=== PATIENT | female | born 1995 | race American Indian/Alaskan Native ===

== ENCOUNTER 2016-12-09 20:05 | Emergency (ER) | payer OTHER ==
[2016-12-09 21:11] VITALS: BP 130/82
[2016-12-09 22:19] LABS: Basophils % (Auto) 0.5 % (0.0-1.8); Eosinophils % (Auto) 1.1 % (0.0-4.3); Hematocrit 36.8 % (30.3-42.9); Hemoglobin 12.4 gm/dl (10.1-14.3); Mean Corpuscular HGB Conc 34 % (30-34); Mean Corpuscular Hemoglobin 32 pg (28-32); Mean Corpuscular Volume 95 fl (79-97); Platelet Count 270 K/mm3 (140-440); Red Blood Count 3.86 M/mm3 (3.65-5.03); Red Cell Distribution Width 12.5 % (13.2-15.2); White Blood Count 6.6 K/mm3 (4.5-11.0)
[2016-12-09 22:36] LABS: Alanine Aminotransferase 14 units/L (7-56); Albumin 4.3 g/dL (3.9-5); Albumin/Globulin Ratio 1.3 %; Alkaline Phosphatase 50 units/L (35-129); Anion Gap 17 mmol/L; BUN/Creatinine Ratio 16.66; Bilirubin,Total 0.3 mg/dL (0.1-1.2); Blood Urea Nitrogen 10 mg/dL (7-17); Calcium 9.1 mg/dL (8.4-10.2); Carbon Dioxide 24 mmol/L (22-30); Chloride 97.2 mmol/L (98-107); Glucose 97 mg/dL (65-100); Lipase 29 units/L (13-60); Potassium 3.7 mmol/L (3.6-5.0); Sodium 134 mmol/L (137-145); Total Protein 7.5 g/dL (6.3-8.2)
[2016-12-10 01:43] LABS: Bacteria,Urine 1+ /HPF (Negative); Bilirubin,Urine NEG (Negative); Blood,Urine NEG (Negative); Ketones,Urine NEG (Negative); Leukocyte Esterase,Urine SM (Negative); Mucus,Urine FEW /HPF; Nitrite,Urine POS (Negative); Protein,Urine <15 mg/dL mg/dL (Negative); Urobilinogen,Urine < 2.0 mg/dL (<2.0)
--- NOTE | 2016-12-10 19:12 | ED Elopement Review ---
ED Pt Elopement review - Results review Lab results: Laboratory Tests 12/09/16 12/09/16 12/10/16 22:00 22:00 00:47 WBC 6.6 RBC 3.86 Hgb 12.4 Hct 36.8 MCV 95 MCH 32 MCHC 34 RDW 12.5 L Plt Count 270 Lymph % (Auto) 49.2 H [place] % (Auto) 6.4 Eos % (Auto) 1.1 Baso % (Auto) 0.5 Lymph # 3.3 [place] # 0.4 Eos # 0.1 Baso # 0.0 Seg Neutrophils % 42.8 Seg Neutrophils # 2.8 Sodium 134 L Potassium 3.7 Chloride 97.2 L Carbon Dioxide 24 Anion Gap 17 BUN 10 Creatinine 0.6 L Estimated GFR > 60 BUN/Creatinine Ratio 16.66 Glucose 97 Calcium 9.1 Total Bilirubin 0.3 AST 20 ALT 14 Alkaline Phosphatase 50 Total Protein 7.5 Albumin 4.3 Albumin/Globulin Ratio 1.3 Lipase 29 Urine Color Yellow Urine Turbidity Cloudy Urine pH 7.0 Ur Specific [place] 1.014 Urine Protein <15 mg/dl Urine Glucose (UA) Neg Urine Ketones Neg Urine Blood Neg Urine Nitrite Pos Ur Reducing Substances Not Reportable Urine Bilirubin Neg Urine Ictotest Not Reportable Urine Urobilinogen < 2.0 Ur Leukocyte Esterase Sm Urine WBC (Auto) 11.0 H Urine RBC (Auto) 1.0 U Epithel Cells (Auto) 30.0 H Urine Bacteria (Auto) 1+ Amorphous Crystals Few Urine Mucus Few Urine HCG, Qual Positive A - Call Back decision Pt Call Back Decision: Call pt to return to ED ANURAG (patient is and has abdominal pain, vomiting and a urinary tract infection. She needs to return to the emergency department for an ultrasound if she is continuing to have pain otherwise follow up with her primary care doctor or her QA AUDITOR)
== END 2016-12-09 22:01 | disposition left against medical advice (07) ==
LOC: ED 20:05
DX: R11.2 Nausea with vomiting, unspecified (principal); R10.9 Unspecified abdominal pain; Z53.21 Procedure and treatment not carried out due to patient leaving prior to being seen by health care provider
CPT/HCPCS: 36415; 80053; 81001; 81025; 83690; 85025

== ENCOUNTER 2016-12-11 21:50 | Emergency (ER) | payer OTHER ==
--- NOTE | 2016-12-11 23:36 | Ultrasound Report ---
FINAL REPORT PROCEDURE: US OB \T\lt; = 14 WEEKS FETUS TECHNIQUE: Real-time transabdominal and transvaginal sonography of the uterus, placenta, amniotic fluid, adnexa, and fetus was performed with image documentation. Measurements were obtained to determine age/size. M-mode Doppler was used to document heartbeat. CPT 98723 and 38323 HISTORY: abd pain COMPARISON: None FINDINGS: ADDITIONAL GESTATION: None. Intrauterine is seen with a pole. [place]-rump length is 1.3 cm corresponding to 7 weeks 4 days gestational age. However, no heart tones are identified. Findings are worrisome for demise. Correlation with serial quantitative beta HCG levels is recommended. Right ovary measures 2.7 x 2.6 x 2.0 cm. Left ovary measures 2.2 x 1.5 x 2.4 cm. No adnexal masses are seen. Normal Doppler flow is seen in the ovaries. No free pelvic fluid is seen. IMPRESSION: Findings are worrisome for demise at 7 weeks 4 days gestational age. Correlation with serial quantitative beta HCG levels is recommended.
--- NOTE | 2016-12-11 23:37 | Ultrasound Report ---
FINAL REPORT PROCEDURE: US OB TRANSVAGINAL TECHNIQUE: Real-time transabdominal and transvaginal sonography of the uterus, placenta, amniotic fluid, adnexa, and fetus was performed with image documentation. Measurements were obtained to determine age/size. M-mode Doppler was used to document heartbeat. CPT 74135 and [id number] HISTORY: abd pain COMPARISON: No prior studies are available for comparison. FINDINGS: ADDITIONAL GESTATION: None. Intrauterine is seen with a pole. Ger[place]-rump length is 1.3 cm corresponding to 7 weeks 4 days gestational age. However, no heart tones are identified. Findings are worrisome for demise. Correlation with serial quantitative beta HCG levels is recommended. Right ovary measures 2.7 x 2.6 x 2.0 cm. Left ovary measures 2.2 x 1.5 x 2.4 cm. No adnexal masses are seen. Normal Doppler flow is seen in the ovaries. No free pelvic fluid is seen. IMPRESSION: Findings are worrisome for demise at 7 weeks 4 days gestational age. Correlation with serial quantitative beta HCG levels is recommended.
--- NOTE | 2016-12-12 00:51 | Emergency Department Report ---
HPI - General Chief Complaint: Abdominal Pain Time Seen by Provider: 12/12/16 00:35 - HPI HPI: Room 37 The patient is a 21-year-old female presenting with a chief complaint of abdominal pain.. The patient states she developed lower abdominal pain 4 days ago. The patient states she had taken 3 tests at home which were all positive. The patient states she came to the emergency department yesterday and had labs drawn the left prior to evaluation because she had to go to work. The patient was called back to the emergency department as was recommended she receive an ultrasound. Patient states she currently has not had any vaginal bleeding, vaginal discharge, dysuria or hematuria. The patient states her last menstrual cycle occurred early August. The patient states in early September she had vaginal bleeding for 2 days which was unusual and then on November 23 she had some spotting. Patient currently denies abdominal pain Location: see above Duration: see above Quality: Pain Severity: 0/10 Modifying factors: see above Context: see above Mode of transportation: not driving ED Past Medical Hx - Past Medical History Previous Medical History?: No - Surgical History Past Surgical History?: No - Family History Family history: no significant - Social History Smoking Status: Never Smoker Substance Use Type: Alcohol (nonsense one week) - Medications Home Medications: Home Medications Medication Instructions Recorded Confirmed Last Taken Type No Known Home Medications [No 12/11/16 12/11/16 Unknown History Reported Home Medications] ED Review of Systems ROS: Stated complaint: CALL BACK FOR ULTRA SOUND Other details as noted in HPI Comment: All other systems reviewed and negative Constitutional: denies: chills, fever Eyes: denies: eye pain, eye discharge, vision change ENT: denies: ear pain, throat pain Respiratory: denies: cough, shortness of breath, wheezing Cardiovascular: denies: chest pain, palpitations Endocrine: no symptoms reported Gastrointestinal: abdominal pain. denies: nausea, diarrhea Genitourinary: abnormal menses. denies: urgency, dysuria, discharge Musculoskeletal: denies: back pain, joint swelling, arthralgia Skin: denies: rash, lesions Neurological: denies: headache, weakness, paresthesias Psychiatric: denies: anxiety, depression Hematological/Lymphatic: denies: easy bleeding, easy bruising Physical Exam - Physical Exam Vital Signs: Vital Signs 12/11/16 22:31 Temperature 98.5 F Pulse Rate 88 Respiratory 18 Rate Blood Pressure 130/86 O2 Sat by Pulse 99 Oximetry Physical Exam: GENERAL: The patient is well-developed well-nourished female lying on stretcher not appearing to be in acute distress. [] HEENT: Normocephalic. Atraumatic. Extraocular motions are intact. Patient has moist mucous membranes. NECK: Supple. Trachea midline CHEST/LUNGS: Clear to auscultation. There is no respiratory distress noted. HEART/CARDIOVASCULAR: Regular. There is no tachycardia. There is no gallop rub or murmur. ABDOMEN: Abdomen is soft, nontender. Patient has normal bowel sounds. There is no abdominal distention. SKIN: There is no rash. There is no edema. There is no diaphoresis. NEURO: The patient is awake, alert, and oriented. The patient is cooperative. The patient has normal speech MUSCULOSKELETAL: There is no CVA tenderness. There is no evidence of acute injury. ED Course Vital Signs 12/11/16 22:31 Temperature 98.5 F Pulse Rate 88 Respiratory 18 Rate Blood Pressure 130/86 O2 Sat by Pulse 99 Oximetry ED Medical Decision Making - Radiology Data Radiology results: report reviewed (pelvic ultrasound), image reviewed (pelvic ultrasound) Pelvic ultrasound (read by radiologist)-findings are worrisome for demise at 7 weeks 4 days gestational age. Correlation with serial quantitative beta hCG levels is recommended. - Differential Diagnosis demise, threatened , ectopic Critical care attestation.: If time is entered above; I have spent that time in minutes in the direct care of this critically ill patient, excluding procedure time. ED Disposition Clinical Impression: Absence of heart activity, Abdominal pain Disposition: DISCHARGED TO HOME OR SELFCARE Is pt being admited?: No Does the pt Need Aspirin: No Condition: Stable Instructions: Abdominal Pain (ED), Intrauterine Demise (ED), Threatened Miscarriage (ED) Additional Instructions: Return to the emergency department immediately should you develop worsening symptoms, fever, inability to tolerate food or liquid or any other concerns. Referrals: CAROLE HARRIS MD [Staff Physician] - [facility] (Dr. Harris is an [employer]. Please follow up with him for further evaluation) Time of Disposition: 00:53 (d/c after serum hCG drawn)
[2016-12-12 01:51] VITALS: BP 132/78
== END 2016-12-12 01:50 | disposition home or self-care (01) ==
LOC: ED 21:50
DX: R10.30 Lower abdominal pain, unspecified (principal)
CPT/HCPCS: 36415; 76801; 76817; 84702; 99284